=== PATIENT | female | born 1960 | race Two or more races ===

== ENCOUNTER 2017-02-13 09:41 | Day surgery (SDC) | payer OTHER ==
[~2017-02-13] VITALS: Ht 157.5 cm; Wt 62.2 kg
[2017-02-13 10:50] VITALS: Ht 157.5 cm; Wt 62.2 kg
[2017-02-13] MEDS ORDERED: CALC-143 PO (11:06)
[2017-02-13] MEDS ORDERED: ASPI81TA3 PO (11:06)
[2017-02-13] MEDS ORDERED: BENA1TAB12 PO (11:06)
[2017-02-13] MEDS ORDERED: METO25TA4 PO (11:06)
[2017-02-13] MEDS ORDERED: HYDR12.58 PO (11:06)
[2017-02-13 11:15] VITALS: BP 179/85; PULSE 58; RESP 16
[2017-02-13] MEDS ORDERED: FENTAnyl 50 MCG/ML VIAL ONE (11:59)
[2017-02-13] MEDS ORDERED: MIDAZOLAM 1 MG/ML 2 ML INJ ONE (11:59)
[2017-02-13 12:11] VITALS: BP 152/68; PULSE 64; RESP 18
--- NOTE | 2017-02-13 13:40 | GILP ---
DATE OF PROCEDURE: 02/13/2017 NAME OF PROCEDURE: Colonoscopy. PREOPERATIVE DIAGNOSIS: Screening colonoscopy to rule out colon polyps. POSTOPERATIVE DIAGNOSES: Minimal external hemorrhoids. Rest of the colon appeared normal. DESCRIPTION OF PROCEDURE: After informed written consent was obtained, the patient was asked to lie on the left lateral side. The patient was given intravenous anesthesia which included 2 mg Versed and 50 mcg of fentanyl. When the patient became somnolent, the Olympus video colonoscope was introd uced into the rectum and scope was advanced all the way to the cecum. Entire colon appeared perfect ly normal. Cecum and appendiceal openings were identified. Photographs were obtained on the way ou t, no additional abnormalities detected except minimal external hemorrhoids and the procedure was te rminated. PLAN: Recommend repeat colonoscopy in 10 years. Dictated By: WILVER KOENIG/NTS Conf#: [id number] DID#: [id number] CC: WILVER REAGAN MD;*EndCC*
== END 2017-02-13 13:10 | disposition home or self-care (01) ==
LOC: GIL 09:41
PROVIDERS: ATTEND Internal Medicine Gastroenterology
DX: Z12.11 Encounter for screening for malignant neoplasm of colon (principal); I10 Essential (primary) hypertension
CPT/HCPCS: 45378; J2250; J3010